=== PATIENT | female | born 1990 | race American Indian/Alaskan Native ===

== ENCOUNTER 2017-03-01 02:38 | Inpatient (IN) | payer SELFPAY ==
[2017-03-01] MEDS ORDERED: PROVENTIL IH ONE (03:00)
[2017-03-01] MEDS ORDERED: ATROVENT IH ONE (03:00)
[2017-03-01 03:39] LABS: Basophils % (Auto) 0.7 % (0.0-1.8); Eosinophils % (Auto) 3.6 % (0.0-4.3); Hematocrit 37.5 % (30.3-42.9); Hemoglobin 12.3 gm/dl (10.1-14.3); Mean Corpuscular HGB Conc 33 % (30-34); Mean Corpuscular Hemoglobin 26 pg (28-32); Mean Corpuscular Volume 80 fl (79-97); Platelet Count 316 K/mm3 (140-440); Red Blood Count 4.68 M/mm3 (3.65-5.03); White Blood Count 12.7 K/mm3 (4.5-11.0)
[2017-03-01 03:57] LABS: Anion Gap 19 mmol/L; Blood Urea Nitrogen 14 mg/dL (7-17); Calcium 8.7 mg/dL (8.4-10.2); Carbon Dioxide 22 mmol/L (22-30); Chloride 102.1 mmol/L (98-107); Glucose 116 mg/dL (65-100); Potassium 3.9 mmol/L (3.6-5.0); Sodium 139 mmol/L (137-145)
--- NOTE | 2017-03-01 04:07 | Emergency Department Report ---
ED Shortness of Breath HPI - General Chief Complaint: Dyspnea/Respdistress Stated Complaint: AMINAH Time Seen by Provider: 03/01/17 03:00 Source: patient Mode of arrival: Stretcher Limitations: No Limitations - History of Present Illness Initial Comments: 26 year female with past medical history of asthma with history of one previous intubation presents to the hospital complains of shortness of breath 4 days. Symptoms worsened this evening. Patient received albuterol 12.5 mg, Solu- Medrol 125 mg, and magnesium in route. There was temporary improvement and then 5 minutes prior to arrival patient started to have significant wheezing and shortness of breath again. She complains of generalized chest tightness that is moderate to severe. NO Reports of cough or fever. - Related Data Home Medications Medication Instructions Recorded Confirmed Last Taken ALBUTEROL Inhaler [Proair] 2 puff IH BID PRN 03/01/17 03/01/17 Unknown Budesoni/Formotero 160-4.5(Nf) 2 puff IH DAILY 03/01/17 03/01/17 Unknown [Symbicort 160-4.5 (Nf)] Allergies Allergy/AdvReac Type Severity Reaction Status Date / Time No Known Allergies Allergy Unverified 03/01/17 03:07 ED Review of Systems ROS: Stated complaint: AMINAH Other details as noted in HPI Comment: All other systems reviewed and negative Other: Constitutional: No fevers chills Eyes: No eye pain visual changes ENT: No ear pain or throat pain Neck: Denies pain Respiratory: as per hpi Cardiovascular: Denies palpitations, syncope GI: Denies abdominal pain, nausea, vomiting, diarrhea : Denies dysuria Musculoskeletal: Denies back pain, Skin: Denies rash, lesions, erythema Neurologic: Denies headache, numbness, weakness Psychiatric: Denies suicidal ideation, hallucinations ED Past Medical Hx - Past Medical History Previous Medical History?: Yes Hx Asthma: Yes - Surgical History Past Surgical History?: Yes Additional Surgical History: C/S - Social History Smoking Status: Never Smoker Substance Use Type: Marijuana - Medications Home Medications: Home Medications Medication Instructions Recorded Confirmed Last Taken Type ALBUTEROL Inhaler [Proair] 2 puff IH BID PRN 03/01/17 03/01/17 Unknown History Budesoni/Formotero 160-4.5(Nf) 2 puff IH DAILY 03/01/17 03/01/17 Unknown History [Symbicort 160-4.5 (Nf)] ED Physical Exam - General Limitations: No Limitations - Other Other exam information: General: No limitations, patient is alert in no acute distress Head exam: Atraumatic, normocephalic Eyes exam: Normal appearance, pupils equal reactive to light, extraocular movements intact ENT: Moist mucous membrane, normal oropharynx Neck exam: Normal inspection, full range of motion, no meningismus nontender Respiratory exam: Tachypnea, so she must use, expiratory and expiratory wheezes Cardiovascular: Tachycardic regular rhythm Abdomen: Soft, nondistended, and nontender, with normal bowel sounds, no rebound, or guarding Extremity: Full range of motion normal inspection no deformity, no calf tenderness or edema Back: Normal Inspection, full range of motion, no tenderness Neurologic: Alert, oriented x3, cranial nerves intact, no motor or sensory deficit Psychiatric: normal affect, normal mood Skin: Warm, dry, intact ED Course Vital Signs 03/01/17 03/01/17 03/01/17 02:40 02:46 02:51 Temperature 98.3 F Pulse Rate 136 H 136 H 128 H Respiratory 27 H 24 19 Rate Blood Pressure 150/88 160/81 Blood Pressure 150/88 [Left] O2 Sat by Pulse 100 100 100 Oximetry 03/01/17 03/01/17 03/01/17 03:01 03:11 03:18 Temperature Pulse Rate 130 H 128 H 129 H Respiratory 19 24 21 Rate Blood Pressure 160/81 142/82 142/82 Blood Pressure [Left] O2 Sat by Pulse 99 Oximetry 03/01/17 03/01/17 03/01/17 03:21 03:23 03:31 Temperature Pulse Rate 128 H 126 H Respiratory 22 24 22 Rate Blood Pressure 134/50 134/50 Blood Pressure [Left] O2 Sat by Pulse 100 Oximetry 03/01/17 03/01/17 03:41 03:51 Temperature Pulse Rate 121 H 119 H Respiratory 27 H 23 Rate Blood Pressure 134/50 149/74 Blood Pressure [Left] O2 Sat by Pulse 100 100 Oximetry - Reevaluation(s) Reevaluation #1: 03/01/17 04:06 BiPAP initiated upon patient arrival in additional albuterol 7.5mg and Atrovent 1 mg ordered ED Medical Decision Making - Lab Data Result diagrams: 03/01/17 03:13 03/01/17 03:13 Lab Results 03/01/17 03/01/17 03/01/17 Range/Units 03:13 03:13 03:13 WBC 12.7 H (4.5-11.0) K/mm3 RBC 4.68 (3.65-5.03) M/mm3 Hgb 12.3 (10.1-14.3) gm/dl Hct 37.5 (30.3-42.9) % MCV 80 (79-97) fl MCH 26 L (28-32) pg MCHC 33 (30-34) % RDW 16.0 H (13.2-15.2) % Plt Count 316 (140-440) K/mm3 Lymph % (Auto) 14.9 (13.4-35.0) % [place] % (Auto) 2.9 (0.0-7.3) % Eos % (Auto) 3.6 (0.0-4.3) % Baso % (Auto) 0.7 (0.0-1.8) % Lymph # 1.9 (1.2-5.4) K/mm3 [place] # 0.4 (0.0-0.8) K/mm3 Eos # 0.5 H (0.0-0.4) K/mm3 Baso # 0.1 (0.0-0.1) K/mm3 Seg Neutrophils % 77.9 H (40.0-70.0) % Seg Neutrophils # 9.9 H (1.8-7.7) K/mm3 Sodium 139 (137-145) mmol/L Potassium 3.9 (3.6-5.0) mmol/L Chloride 102.1 (98-107) mmol/L Carbon Dioxide 22 (22-30) mmol/L Anion Gap 19 mmol/L BUN 14 (7-17) mg/dL Creatinine 0.7 (0.7-1.2) mg/dL Estimated GFR > 60 ml/min BUN/Creatinine Ratio 20.00 % Glucose 116 H (65-100) mg/dL Calcium 8.7 (8.4-10.2) mg/dL HCG, Qual Negative (Negative) - EKG Data -: EKG Interpreted by Me (sinus tach rate 116) - EKG Data When compared to previous EKG there are: previous EKG unavailable - Radiology Data Radiology results: report reviewed (cxr: no acute findings) - Medical Decision Making Patient requires admission to the hospital for further respiratory support to acute severe asthma exacerbation - Differential Diagnosis asthma, bronchitis, pneumonia, pneumothorax Critical Care Time: No Critical care attestation.: If time is entered above; I have spent that time in minutes in the direct care of this critically ill patient, excluding procedure time. ED Disposition Clinical Impression: Status asthmaticus Disposition: -09 OP ADMIT IP TO THIS HOSP Is pt being admited?: Yes Condition: Stable Referrals: PRIMARY CARE, [Primary Care Provider] - 3-5 Days Time of Disposition: 04:07 (Dr Del Rio/hosp)
--- NOTE | 2017-03-01 04:22 | XRay Report ---
FINAL REPORT PROCEDURE: XR CHEST 1V AP TECHNIQUE: Chest radiograph anteroposterior view. CPT 03287 HISTORY: sob, wheezing....HCG ORDERED/EM COMPARISON: No prior studies are available for comparison. FINDINGS: Heart: Normal. Mediastinum/Vessels: Normal. Lungs/Pleural space: Normal. Bony thorax: No acute osseous abnormality. Life support devices: None. IMPRESSION: No acute cardiopulmonary abnormality.
[2017-03-01 05:12] LABS: ISTAT Base Excess -4; ISTAT HCO3 21.9; ISTAT PCO2 41.3 (35-45); ISTAT PH 7.333 (7.35-7.45); ISTAT PO2 263 (80-105); ISTAT SO2 100; ISTAT TCO2 23
--- NOTE | 2017-03-01 05:41 | History and Physical Report ---
History of Present Illness Date of examination: 03/01/17 Date of admission: 03/01/2017 Chief complaint: Chief complaint: Increasing shortness of breath and wheezing for 2 days. History of present illness: History of Present Illness 26 year female with past medical history of asthma with history of Asthma, previous intubation x1 presents to the hospital with shortness of breath 4 days. Symptoms worsened this evening. Patient received albuterol 12.5 mg, Solu -Medrol 125 mg, and magnesium in route. There was temporary improvement and then 5 minutes prior to arrival patient started to have significant wheezing and shortness of breath again. She complains of generalized chest tightness that is moderate to severe. NO Reports of cough or fever.Patient was put on BiPAP in the emergency room. No intubation at present. - Related Data Home Medications Medication Instructions Recorded Confirmed Last Taken ALBUTEROL Inhaler [Proair] 2 puff IH BID PRN 03/01/17 03/01/17 Unknown Budesoni/Formotero 160-4.5(Nf) 2 puff IH DAILY 03/01/17 03/01/17 Unknown [Symbicort 160-4.5 (Nf)] Allergies Allergy/AdvReac Type Severity Reaction Status Date / Time No Known Allergies Allergy Unverified 03/01/17 03:07 ED Past Medical Hx - Past Medical History Previous Medical History?: Yes Hx Asthma: Yes - Surgical History Past Surgical History?: Yes Additional Surgical History: C/S - Social History Smoking Status: Never Smoker Substance Use Type: Marijuana - Medications Home Medications: Home Medications Medication Instructions Recorded Confirmed Last Taken Type ALBUTEROL Inhaler [Proair] 2 puff IH BID PRN 03/01/17 03/01/17 Unknown History Budesoni/Formotero 160-4.5(Nf) 2 puff IH DAILY 03/01/17 03/01/17 Unknown History [Symbicort 160-4.5 (Nf)] Review of Systems ROS: Stated complaint: AMINAH Other details as noted in HPI Comment: All other systems reviewed and negative Other: Constitutional: No fevers chills Eyes: No eye pain visual changes ENT: No ear pain or throat pain Neck: Denies pain Respiratory: as per hpi Cardiovascular: Denies palpitations, syncope GI: Denies abdominal pain, nausea, vomiting, diarrhea : Denies dysuria Musculoskeletal: Denies back pain, Skin: Denies rash, lesions, erythema Neurologic: Denies headache, numbness, weakness Psychiatric: Denies suicidal ideation, hallucinations Medications and Allergies Allergies Allergy/AdvReac Type Severity Reaction Status Date / Time No Known Allergies Allergy Unverified 03/01/17 03:07 Home Medications Medication Instructions Recorded Confirmed Last Taken Type ALBUTEROL Inhaler [Proair] 2 puff IH BID PRN 03/01/17 03/01/17 Unknown History Budesoni/Formotero 160-4.5(Nf) 2 puff IH DAILY 03/01/17 03/01/17 Unknown History [Symbicort 160-4.5 (Nf)] Exam - Physical Exam Narrative exam: In severe respiratory distress with BiPAP in place - Constitutional Vitals: Temp Pulse Resp BP Pulse Ox 98.3 F 119 H 18 149/74 100 03/01/17 02:46 03/01/17 03:51 03/01/17 05:07 03/01/17 03:51 03/01/17 03:51 General appearance: Present: no acute distress, well-nourished - EENT Eyes: Present: PERRL ENT: hearing intact, clear oral mucosa - Neck Neck: Present: supple, normal ROM - Respiratory Respiratory effort: normal Respiratory: bilateral: diminished, rhonchi - Cardiovascular Heart rate: 90 Rhythm: regular (90) Heart Sounds: Present: S1 & S2. Absent: rub, click - Extremities Extremities: no ischemia, pulses intact, pulses symmetrical, No edema Peripheral Pulses: within normal limits - Abdominal General gastrointestinal: Present: soft, non-tender, non-distended, normal bowel sounds Female genitourinary: Present: normal - Rectal Rectal Exam: deferred - Integumentary Integumentary: Present: clear, warm, dry - Musculoskeletal Musculoskeletal: gait normal, strength equal bilaterally - Psychiatric Psychiatric: appropriate mood/affect, intact judgment & insight - Neurologic Neurologic: CNII-XII intact, moves all extremities - Allied Health Allied health notes reviewed: nursing, social work Results - Labs CBC & Chem 7: 03/01/17 03:13 03/01/17 03:13 Labs: Laboratory Last Values WBC 12.7 K/mm3 (4.5-11.0) H 03/01/17 03:13 RBC 4.68 M/mm3 (3.65-5.03) 03/01/17 03:13 Hgb 12.3 gm/dl (10.1-14.3) 03/01/17 03:13 Hct 37.5 % (30.3-42.9) 03/01/17 03:13 MCV 80 fl (79-97) 03/01/17 03:13 MCH 26 pg (28-32) L 03/01/17 03:13 MCHC 33 % (30-34) 03/01/17 03:13 RDW 16.0 % (13.2-15.2) H 03/01/17 03:13 Plt Count 316 K/mm3 (140-440) 03/01/17 03:13 Lymph % (Auto) 14.9 % (13.4-35.0) 03/01/17 03:13 [place] % (Auto) 2.9 % (0.0-7.3) 03/01/17 03:13 Eos % (Auto) 3.6 % (0.0-4.3) 03/01/17 03:13 Baso % (Auto) 0.7 % (0.0-1.8) 03/01/17 03:13 Lymph # 1.9 K/mm3 (1.2-5.4) 03/01/17 03:13 [place] # 0.4 K/mm3 (0.0-0.8) 03/01/17 03:13 Eos # 0.5 K/mm3 (0.0-0.4) H 03/01/17 03:13 Baso # 0.1 K/mm3 (0.0-0.1) 03/01/17 03:13 Seg Neutrophils % 77.9 % (40.0-70.0) H 03/01/17 03:13 Seg Neutrophils # 9.9 K/mm3 (1.8-7.7) H 03/01/17 03:13 POC ABG pH 7.333 (7.35-7.45) L 03/01/17 05:00 POC ABG pCO2 41.3 (35-45) 03/01/17 05:00 POC ABG pO2 263 (80-105) H 03/01/17 05:00 POC ABG HCO3 21.9 03/01/17 05:00 POC ABG Total CO2 23 03/01/17 05:00 POC ABG O2 Sat 100 03/01/17 05:00 POC ABG Base Excess -4 03/01/17 05:00 FiO2 50 % 03/01/17 05:00 Sodium 139 mmol/L (137-145) 03/01/17 03:13 Potassium 3.9 mmol/L (3.6-5.0) 03/01/17 03:13 Chloride 102.1 mmol/L (98-107) 03/01/17 03:13 Carbon Dioxide 22 mmol/L (22-30) 03/01/17 03:13 Anion Gap 19 mmol/L 03/01/17 03:13 BUN 14 mg/dL (7-17) 03/01/17 03:13 Creatinine 0.7 mg/dL (0.7-1.2) 03/01/17 03:13 Estimated GFR > 60 ml/min 03/01/17 03:13 BUN/Creatinine Ratio 20.00 % 03/01/17 03:13 Glucose 116 mg/dL (65-100) H 03/01/17 03:13 Calcium 8.7 mg/dL (8.4-10.2) 03/01/17 03:13 HCG, Qual Negative (Negative) 03/01/17 03:13 - Imaging and Cardiology EKG: report reviewed Chest x-ray: report reviewed (no acute findings) Assessment and Plan Advance Directives: Yes (full code) VTE prophylaxis?: Chemical Plan of care discussed with patient/family: Yes - Patient Problems (1) Acute respiratory failure with hypoxia Current Visit: Yes Status: Acute Plan to address problem: Secondary to severe asthma and bronchospasm. Patient started on IV Solu-Medrol IV Levaquin Dounebs Q 6Hrs [id number] and every 3 hours when necessary. Continue BiPAP. Intubation if necessary with ventilatory support. (2) Obesity (BMI 30-39.9) Current Visit: Yes Status: Chronic Plan to address problem: Patient counseled about weight (3) Asthma exacerbation Current Visit: Yes Status: Acute Plan to address problem: Continue Solu-Medrol IV Levaquin every 24 hours and nebulizer treatments every 6 [id number] and every 3 hours when necessary (4) DVT prophylaxis Current Visit: Yes Status: Acute Plan to address problem: Lovenox 40 mg subcutaneous daily
[2017-03-01] MEDS ORDERED: PROAIR IH PRN (05:50)
[2017-03-01] MEDS ORDERED: DULCOLAX PR PRN (05:52)
[2017-03-01] MEDS ORDERED: MILK OF MAGNESIA PO PRN (05:52)
[2017-03-01] MEDS ORDERED: DILAUDID IV PRN (05:52)
[2017-03-01] MEDS ORDERED: PERCOCET 5/325 PO PRN (05:52)
[2017-03-01] MEDS ORDERED: ZOFRAN IV PRN (05:52)
[2017-03-01] MEDS ORDERED: TYLENOL PO PRN (05:52)
[2017-03-01] MEDS: D5NS 1,000 ML IV SCH ×2 (06:10→22:08)
[2017-03-01] MEDS: PULMICORT IH SCH ×3 (06:25→20:01)
[2017-03-01] MEDS: BROVANA NEBU IH SCH ×3 (06:32→20:01)
--- NOTE | 2017-03-01 07:07 | Admit Criteria Form ---
Admission Criteria Documentation: ASTHMA Clinical Indications for Admission to Inpatient Care (Place 'X' for any and all applicable criteria): Admission is indicated for ANY ONE of the following (1)(2)(3)(4)(5): [ ]I. Absent or markedly diminished breath sounds (silent chest) [ ]II. Oxygen saturation < 92% [ ]III. PaCO2 = / > 42 mm Hg (5.6 kPa) [ ]IV. Peak expiratory flow rate < 40% of predicted or personal best after treatment. [ ]V. Peak expiratory flow rate < 33% of predicted or personal before after treatment [ ]. Change in mental status [X ]VII. Ventilatory support required [ ]VIII. PaO2 < 60 mm Hg (8.0 kPa) [ ]IX. Cyanosis [ ]X. Cardiac dysrhythmia (e.g., bradycardia) [ ]XI. Hemodynamic instability [ ]XII. Radiographic evidence of complication requiring inpatient treatment (e.g., pneumonia, pneumothorax) [X]XIII. Inpatient admission required rather than observation care (also use Asthma: Observation Care guideline as appropriate) because of ANY ONE of the following: [X]a) Respiratory finding that is severe or persistent (eg, dyspnea, tachypnea, accessory muscle use) [ ]b) Airflow measurements less than 60% of predicted or personal best that persist (e.g., over 24 hours) or worsen despite treatments [ ]c) Supplemental oxygen or respiratory treatments for over 24 hours that are performable only in acute inpatient setting [ ]d) Other condition, treatment or monitoring requiring inpatient admission. Extended stay beyond goal length of stay may be needed for (26)(27)(28): [ ]a) Severe respiratory failure (23) (29) (30) [ ]b) Secondary causes and complications (25) [ ]c) Status asthmaticus [ ]d) Chronic obstructive asthma [ ]e) Older patients (29) [ ]f) Slow resolution [ ]g) Clinically significant exacerbation of comorbidities (eg, mari. heart failure, atrial fibrillation) The original [facility] content created by [employer] has been revised. The portions of the content which have been revised are identified through the use of italic text or in bold, and [facility] [employer] has neither reviewed nor approved the modified material. All other unmodified content is copyright [facility] Please see references footnoted in the original [facility] edition 2016 Admission Criteria Met: Yes
[2017-03-01] MEDS: DUONEB *Not for PRN Use IH SCH ×3 (07:37→21:16)
[2017-03-01] MEDS ORDERED: NON-FORMULARY (Budesoni/Formotero 160-4.5(Nf) 2 PUFF) IH SCH (10:00)
[2017-03-01] MEDS: LOVENOX SUB-Q SCH (10:52)
[2017-03-01] MEDS: LEVAQUIN 750MG/150ML 750 MG/150 ML BAG IV SCH (10:52)
[2017-03-01] MEDS: PEPCID PO SCH ×2 (10:52→22:07)
--- NOTE | 2017-03-01 16:11 | Event Note ---
Date: 03/01/17 Patient seen and examined in no acute distress reports some improvement. We'll try to wean off BiPAP today. Continue current therapy taper steroids.
[2017-03-01] MEDS: PROVENTIL IH PRN (18:07)
--- NOTE | 2017-03-01 19:36 | Progress Note ---
Subjective Date of service: 03/01/17 Interval history: Dr. Del Rio thank you for asking me to participate in the care of this patient. Full consulatation follow. This is 26 year old female history of asthma and history of intubation in the past admitted with Acute exacerbation asthma . Patient started on I/V solumedral, Aerosolized bronchodilators and levaquine. Patient says feeling better, breathing better.Denies othe medical problems. Denies any history of smoking, alcohol or drug abuse.No known drug allergies. IMMPRESSION: 1.Acute exacerbation of asthma. 2. Acute respiratory failure with hypoxia. 3. Obesity. PLAN: 1.O2 2 litres Via nasal canula. 2. Albuterol/atrovent aerosol treatments q 6 hours. 3. Continue I/V solumedral. 4. Continue Levaquine. 5. Continue Lovenox 6. Continue Famotadine. Objective Vital Signs - 12hr 03/01/17 03/01/17 03/01/17 07:38 07:57 08:00 Temperature 98.2 F Pulse Rate [ 110 H 107 H Anterior Bilateral Throughout] Pulse Rate [ Apical] Pulse Rate [ Left Dorsalis Pedis] Pulse Rate [ 111 H Left From Monitor] Pulse Rate [ Left Radial] Pulse Rate [ Right Dorsalis Pedis] Pulse Rate [ Right Radial] Respiratory 18 Rate Respiratory 19 18 Rate [Anterior Bilateral Throughout] Blood Pressure 122/80 [Left Arm] O2 Sat by Pulse 100 Oximetry 03/01/17 03/01/17 03/01/17 12:00 13:42 14:02 Temperature 98.3 F Pulse Rate [ 102 H 94 H Anterior Bilateral Throughout] Pulse Rate [ Apical] Pulse Rate [ Left Dorsalis Pedis] Pulse Rate [ 113 H Left From Monitor] Pulse Rate [ Left Radial] Pulse Rate [ Right Dorsalis Pedis] Pulse Rate [ Right Radial] Respiratory 18 Rate Respiratory 18 20 Rate [Anterior Bilateral Throughout] Blood Pressure 124/76 [Left Arm] O2 Sat by Pulse 100 Oximetry 03/01/17 03/01/17 03/01/17 14:06 17:00 18:07 Temperature 98.5 F Pulse Rate [ 105 H Anterior Bilateral Throughout] Pulse Rate [ 104 H Apical] Pulse Rate [ 104 H Left Dorsalis Pedis] Pulse Rate [ Left From Monitor] Pulse Rate [ 104 H Left Radial] Pulse Rate [ 104 H Right Dorsalis Pedis] Pulse Rate [ 104 H Right Radial] Respiratory 20 Rate Respiratory 18 Rate [Anterior Bilateral Throughout] Blood Pressure 137/73 [Left Arm] O2 Sat by Pulse 100 Oximetry 03/01/17 18:27 Temperature Pulse Rate [ 98 H Anterior Bilateral Throughout] Pulse Rate [ Apical] Pulse Rate [ Left Dorsalis Pedis] Pulse Rate [ Left From Monitor] Pulse Rate [ Left Radial] Pulse Rate [ Right Dorsalis Pedis] Pulse Rate [ Right Radial] Respiratory Rate Respiratory 18 Rate [Anterior Bilateral Throughout] Blood Pressure [Left Arm] O2 Sat by Pulse Oximetry CBC and BMP: 03/01/17 03:13 03/01/17 03:13 ABG, PT/INR, D-dimer: ABG POC ABG pH 7.333 (7.35-7.45) L 03/01/17 05:00 POC ABG pCO2 41.3 (35-45) 03/01/17 05:00 POC ABG pO2 263 (80-105) H 03/01/17 05:00 POC ABG HCO3 21.9 03/01/17 05:00 POC ABG Total CO2 23 03/01/17 05:00 POC ABG O2 Sat 100 03/01/17 05:00
[2017-03-02] MEDS: DUONEB *Not for PRN Use IH SCH ×3 (02:40→13:36)
[2017-03-02] MEDS: PROVENTIL IH PRN (05:22)
[2017-03-02 07:28] LABS: Basophils % (Auto) 0.1 % (0.0-1.8); Hematocrit 34.5 % (30.3-42.9); Hemoglobin 11.3 gm/dl (10.1-14.3); Mean Corpuscular HGB Conc 33 % (30-34); Mean Corpuscular Hemoglobin 26 pg (28-32); Mean Corpuscular Volume 80 fl (79-97); Platelet Count 318 K/mm3 (140-440); Red Blood Count 4.29 M/mm3 (3.65-5.03); Red Cell Distribution Width 16.1 % (13.2-15.2); White Blood Count 17.4 K/mm3 (4.5-11.0)
[2017-03-02 07:52] LABS: Alanine Aminotransferase 7 units/L (7-56); Albumin 3.9 g/dL (3.9-5); Albumin/Globulin Ratio 1.3 %; Alkaline Phosphatase 37 units/L (35-129); Anion Gap 16 mmol/L; BUN/Creatinine Ratio 26.66; Blood Urea Nitrogen 16 mg/dL (7-17); Calcium 8.5 mg/dL (8.4-10.2); Carbon Dioxide 21 mmol/L (22-30); Chloride 102.4 mmol/L (98-107); Glucose 132 mg/dL (65-100); Potassium 4.4 mmol/L (3.6-5.0); Sodium 135 mmol/L (137-145); Total Protein 6.9 g/dL (6.3-8.2)
[2017-03-02] MEDS: PULMICORT IH SCH (08:19)
[2017-03-02] MEDS: BROVANA NEBU IH SCH (08:22)
--- NOTE | 2017-03-02 10:25 | Discharge Summary ---
Providers - Providers Date of Admission: 03/01/17 05:52 Date of discharge: 03/02/17 Attending physician: MICHAEL COVARRUBIAS MD Primary care physician: MANAGER ETL Hospitalization Reason for admission: shortness of breath Condition: Stable Hospital course: 26 year female with past medical history of asthma with history of Asthma, previous intubation x1 presents to the hospital with shortness of breath 4 days. Symptoms worsened this evening. Patient received albuterol 12.5 mg, Solu -Medrol 125 mg, and magnesium in route. There was temporary improvement and then 5 minutes prior to arrival patient started to have significant wheezing and shortness of breath again. She complains of generalized chest tightness that is moderate to severe. NO Reports of cough or fever. Patient was put on BiPAP in the emergency room. No intubation at present. Patient was currently held corticosteroids in addition to systemic steroids. She reports that she has been out of her medication for some time due to cost. She was also placed on BiPAP temporarily with significant improvement today she is ambulating without difficulty oxygen saturation is maintained in a palpable 90% on room air. She has been subsequently weaned down to by mouth steroids. We've also addressed inhaled corticosteroids and called across the pharmacist to obtain much affordable medication which she states she will be able to afford. She is currently stable for discharge 1. Acute exacerbation of asthma. 2. Acute respiratory failure with hypoxia. 3. Morbid obesity BMI 48.1 Disposition: TO HOME OR SELFCARE Time spent for discharge: 35 MINS Core Measure Documentation - Palliative Care Palliative Care/ Comfort Measures: Not Applicable - Core Measures Any of the following diagnoses?: none - VTE Discharge Requirements Deep Vein Thrombosis/Pulmonary Embolism Present on Admission: No Exam - Physical Exam Narrative exam: VITAL SIGNS: Reviewed. GENERAL: The patient appeared well nourished and normally developed. Vital signs as documented. HEAD: No signs of head trauma. EYES: Pupils are equal. Extraocular motions intact. EARS: Hearing grossly intact. MOUTH: Oropharynx is normal. NECK: No adenopathy, no JVD. CHEST: Chest with clear breath sounds bilaterally. No wheezes, rales, or rhonchi. CARDIAC: Regular rate and rhythm. S1 and S2, without murmurs, gallops, or rubs. VASCULAR: No Edema. Peripheral pulses normal and equal in all extremities. ABDOMEN: Soft, without detectable tenderness. No sign of distention. No rebound or guarding, and no masses palpated. Bowel Sounds normal. MUSCULOSKELETAL: Good range of motion of all major joints. Extremities without clubbing, cyanosis or edema. NEUROLOGIC EXAM: Alert and oriented x 3. No focal sensory or strength deficits. Speech normal. Follows commands. PSYCHIATRIC: Mood normal. SKIN: No rash or lesions. - Constitutional Vitals: Temp Pulse Resp BP Pulse Ox 98.1 F 82 18 143/69 100 03/02/17 08:00 03/02/17 08:20 03/02/17 08:20 03/02/17 08:00 03/02/17 08:21 Plan Activity: advance as tolerated, fall precautions Diet: low fat Special Instructions: smoking cessation Follow up with: PRIMARY CAREMD [Primary Care Provider] - 3-5 Days SHAHRIAR BURKETT MD [Staff Physician] - 7 Days Forms: Work/School Release Form(ED) Prescriptions: ALBUTEROL Inhaler [ProAir HFA Inhaler] 2 puff IH BID PRN 30 Days PRN Reason: Shortness Of Breath Fluticasone/Salmeterol [Advair Diskus 250-50 mcg] 1 puff IH BID 30 Days predniSONE [Deltasone] 10 mg PO .TAPER #48 tab
[2017-03-02] MEDS ORDERED: DELTASONE PO SCH (11:00)
[2017-03-02] MEDS: LEVAQUIN 750MG/150ML 750 MG/150 ML BAG IV SCH (11:07)
[2017-03-02] MEDS: LOVENOX SUB-Q SCH (11:08)
[2017-03-02] MEDS: PEPCID PO SCH (11:08)
[2017-03-02 17:54] VITALS: BP 142/93
== END 2017-03-02 17:50 | disposition home or self-care (01) | DRG 189 ==
LOC: ED 02:38 → 4A 05:52
PROVIDERS: ADMIT Internal Medicine; ATTEND Internal Medicine
PROC: 4A033R1 Measurement of Arterial Saturation, Peripheral, Percutaneous Approach (ICD-10-PCS; principal; 2017-03-01)
PROC: 5A09357 Assistance with Respiratory Ventilation, Less than 24 Consecutive Hours, Continuous Positive Airway Pressure (ICD-10-PCS; 2017-03-01)
DX: J96.01 Acute respiratory failure with hypoxia (principal); J45.902 Unspecified asthma with status asthmaticus; Z68.30 Body mass index [BMI] 30.0-30.9, adult; E66.01 Morbid (severe) obesity due to excess calories
CPT/HCPCS: 36415; 71010; 80048; 80053; 82803; 83036; 84703; 85025; 93005; 93010; 94640; 94760; J1650; J1956; J2930; J7042; J7512